=== PATIENT | female | born 1995 | race Caucasian/White ===

== ENCOUNTER 2019-03-08 15:32 | Outpatient (CLI) | payer BC ==
[~2019-03-08 15:32] MED LIST: Iopamidol 370 76% 100 ML VIAL ONE
--- NOTE | 2019-03-08 16:54 | CT ---
CT CHEST WITH IV CONTRAST: 03/08/19 HISTORY: Pneumonia. FINDINGS: There is extensive consolidation in the left lower lobe. No pleural or pericardial effusions are seen . No pneumothoraces identified. No mediastinal, hilar, axillary mass or lymphadenopathy are noted. Th e bony structures are normal. IMPRESSION: Left lower lobe consolidation likely due to pneumonia. Evaluation with bronchoscopy would be helpful . POS: [facility]
== END 2019-03-08 15:33 | disposition home or self-care (01) ==
LOC: CT 15:32
PROVIDERS: ATTEND Internal Medicine
DX: J90 Pleural effusion, not elsewhere classified (principal); R91.8 Other nonspecific abnormal finding of lung field
CPT/HCPCS: 71260; Q9967

== ENCOUNTER 2019-03-28 11:02 | Outpatient (CLI) | payer BC ==
--- NOTE | 2019-03-28 11:26 | RAD ---
XR Chest Pa Lat @ [facility] HISTORY: Dyspnea COMPARISON: 03/25/2019 FINDINGS: The heart size is normal. The lungs are well expanded without pneumothorax or pleural effus ions. There is significant improvement in the left basilar consolidation with minimal residual density compared to the tower operator film of the CT scan of 03/08/2019. IMPRESSION: Resolving pneumonia.
== END 2019-03-28 11:03 | disposition home or self-care (01) ==
LOC: RAD 11:02
PROVIDERS: ATTEND Family Medicine
DX: R06.00 Dyspnea, unspecified (principal); J18.9 Pneumonia, unspecified organism
CPT/HCPCS: 71046